=== PATIENT | male | born 1960 | race Caucasian/White ===

== ENCOUNTER → 2017-05-30 | Outpatient (CLI) | payer BC ==
[2017-05-30 10:22] LABS: ALT 57 U/L (21-72); AST 32 U/L (17-59); Cholesterol 157 mg/dL (<200); HDL Cholesterol 36 mg/dL (40-60); Triglycerides 101 mg/dL (<150)
== END ==
LOC: LABWHC1 09:35
PROVIDERS: ATTEND Internal Medicine Cardiovascular Disease
DX: E78.2 Mixed hyperlipidemia (principal)
CPT/HCPCS: 36415; 80061; 84450; 84460

== ENCOUNTER → 2018-01-09 | Outpatient (CLI) | payer BC ==
[2018-01-09 09:46] LABS: ALT 57 U/L (21-72); AST 28 U/L (17-59); Cholesterol 158 mg/dL (<200); HDL Cholesterol 35 mg/dL (40-60); LDL Cholesterol,Calculated 106 mg/dL (0-99); Triglycerides 87 mg/dL (<150)
== END | disposition home or self-care (01) ==
LOC: LABWHC1 08:49
PROVIDERS: ATTEND Internal Medicine Cardiovascular Disease
DX: E78.2 Mixed hyperlipidemia (principal)
CPT/HCPCS: 36415; 80061; 84450; 84460

== ENCOUNTER → 2019-07-16 | Outpatient (CLI) | payer BC ==
[2019-07-16 17:17] LABS: Chol/HDL Ratio 3.2; LDL Cholesterol,Calculated 71.8 mg/dL (0.0-131.0); VLDL Calculation 16.2 mg/dL (5.00-40.00)
== END | disposition home or self-care (01) ==
LOC: LABWHC1 07:14
PROVIDERS: ATTEND Internal Medicine Cardiovascular Disease
DX: E78.2 Mixed hyperlipidemia (principal)
CPT/HCPCS: 36415; 80061; 84450; 84460

== ENCOUNTER → 2022-12-13 | Outpatient (CLI) | payer BC ==
[2022-12-13 10:55] LABS: ALT 32 U/L (10-49); AST 29 U/L (14-35); Chol/HDL Ratio 4.92 Ratio; LDL Cholesterol,Calculated 120.8 mg/dL (0.0-131.0)
== END | disposition home or self-care (01) ==
LOC: LABWHC1 07:24
PROVIDERS: ATTEND Internal Medicine Cardiovascular Disease
DX: E78.2 Mixed hyperlipidemia (principal)
CPT/HCPCS: 36415; 80061; 84450; 84460

== ENCOUNTER → 2023-02-13 | Outpatient (CLI) | payer BC ==
--- NOTE | 2023-02-13 14:38 | US ---
EXAMINATION TYPE: US carotid duplex BILAT DATE OF EXAM: 02/13/2023 COMPARISON: NONE CLINICAL HISTORY: 62-year-old male H92.01 OTALGIA RT EAR. TECHNIQUE: Carotid duplex ultrasound examination. Indirect Doppler criteria was utilized. FINDINGS: EXAM MEASUREMENTS: RIGHT: Peak Systolic Velocity (PSV) cm/sec ----- Right CCA: 68.6 ----- Right ICA: 75.3 ----- Right ECA: 90.5 ICA/CCA ratio: 1.1 RIGHT: End Diastole cm/sec ----- Right CCA: 19.0 ----- Right ICA: 31.0 ----- Right ECA: 20.2 LEFT: Peak Systolic Velocity (PSV) cm/sec ----- Left CCA: 86.0 ----- Left ICA: 73.5 ----- Left ECA: 107.0 ICA/CCA ratio: 0.9 LEFT: End Diastole cm/sec ----- Left CCA: 23.2 ----- Left ICA: 27.7 ----- Left ECA: 23.1 VERTEBRALS (direction of flow): Right Vertebral: Antegrade Left Vertebral: Antegrade Rhythm: Normal Database Coordinator notes: No significant stenosis IMPRESSION: No hemodynamically significant internal carotid stenosis on the side. Criteria for Assigning % of Stenosis / Diameter reduction (Estimation based on the indirect measurements of the internal carotid artery velocities (ICA PSV). 1. Normal (no stenosis)=ICA PSV < 125 cm/s: ratio < 2.0: ICA EDV<40 cm/s. 2. Less than 50% stenosis=ICA PSV < 125 cm/s: ratio < 2.0: ICA EDV<40 cm/s. 3. 50 to 69% stenosis=ICA PSV of 125 to 230 cm/s: ration 2.0 ? 4.0: ICA EDV 40-100 cm/s. 4. Greater than 70% stenosis to near occlusion= ICA PSV > 230 cm/s: ratio > 4.0: ICA EDV > 100 cm/s. 5. Near occlusion= ICA PSV velocities may be low or undetectable: variable ratio and ICA EDV. 6. Total occlusion=unable to detect flow.
== END | disposition home or self-care (01) ==
LOC: RADUSWWP 10:50
PROVIDERS: ATTEND Otolaryngology
DX: H92.01 Otalgia, right ear (principal); H93.A3 Pulsatile tinnitus, bilateral
CPT/HCPCS: 93880

== ENCOUNTER → 2023-03-08 | Outpatient (CLI) | payer BC ==
--- NOTE | 2023-03-09 10:27 | MR ---
EXAMINATION TYPE: MR angio head wo/neck wo/w con DATE OF EXAM: 03/08/2023 3:09 PM CLINICAL INDICATION:Male, 62 years old with history of H93.A3,H93.01; Pulsatile tinnitus COMPARISON: CT 04/27/2014 Technical: MRA brain: 3-D [id number] Axial with MIP and 3-D reconstruction. Performed on a separate workstat ion. MRA neck: Multiplanar, multi-sequence imaging as well as [id number] and phase was performed extra cranial vasculature of the neck. 3-D reformatted images and maximum intensity projection reformatted images were submitted for evaluation, these are performed on a separate workstation. IV Contrast: 9.5 cc Gadavist Findings: Vertebral arteries: The vertebral arteries are patent. Vertebral arteries are codominant. Basilar artery: The basilar artery is intact. The basilar artery bifurcation is normal. Internal Carotid arteries: The cervical, petrous, cavernous and supraclinoid segments are normal. AMPARO: Patent with no evidence of aneurysm. ACOM: Present without evidence of aneurysm. MCA: Patent with no evidence of aneurysm. HIGH RISK CASE MANAGER: Patent with no evidence of aneurysm. PCOM: Hypoplastic bilaterally. Vascular loop type I on the left with a vessel coursing along the opening of the left internal audito ry canal. This is in close proximity to the left seventh and eighth cranial nerves. RIGHT CAROTID SYSTEM: The common carotid artery is patent. The carotid bifurcations demonstrates no e vidence for hemodynamically significant stenosis. The internal carotid artery is patent. LEFT CAROTID SYSTEM: The common carotid artery is patent. The carotid bifurcations demonstrates no e vidence for hemodynamically significant stenosis. The internal carotid artery is patent. The origins of the great vessels and vertebral arteries appear unremarkable. The codominant vertebra l arteries. IMPRESSION: 1. No evidence of intracranial aneurysm or significant stenosis. 2. Left internal auditory canal vascular loop correlate with left-sided pulsatile tinnitus. 3. No evidence of significant stenosis at the carotid bifurcations. The carotid and vertebral arteri es are patent. 4. No evidence aneurysm.
== END | disposition home or self-care (01) ==
LOC: RADMRIMAIN 14:15
PROVIDERS: ATTEND Otolaryngology
DX: H93.A3 Pulsatile tinnitus, bilateral (principal); H92.01 Otalgia, right ear
CPT/HCPCS: 70544; 70549; A9585

== ENCOUNTER → 2023-10-09 | Outpatient (CLI) | payer BC ==
--- NOTE | 2023-10-11 20:35 | MR ---
EXAMINATION TYPE: MR shoulder RT wo con DATE OF EXAM: 10/09/2023 COMPARISON: Right shoulder radiographs 09/30/2023 HISTORY: Right shoulder pain TECHNIQUE: Multiplanar, multisequence imaging of the right shoulder is performed without contrast. FINDINGS: SUPRASPINATUS: Intact. INFRASPINATUS: Intact. SUBSCAPULARIS: Intact. TERES MINOR: Intact. BICEPS: Intact. Increased signal within the intra-articular portion, relating to tendinosis. Normal a nchor in the supraglenoid tubercle. Extra-articular portion is appropriately positioned within the bi cipital groove. GLENOHUMERAL JOINT: Normal alignment and joint space. Normal cartilage. No effusion. ACROMIOCLAVICULAR JOINT: Capsular hypertrophy and large undersurface osteophytic spurring, this narro ws the subacromial space and indents upon the supraspinatus myotendinous junction. Trace joint effusi on. LABRUM: Normal, given the limitations of a non-arthrographic exam. SUBDELTOID BURSA: Normal. No increased fluid. MUSCLES: Normal. BONE MARROW: Degenerative bone marrow edema in the clavicle and acromion at the AC joint. OTHER: No additional significant abnormality is appreciated. IMPRESSION: 1. Intact rotator cuff tendons. 2. Long head biceps tendinosis. 3. Advanced AC joint osteoarthrosis narrowing the subacromial space and indenting the supraspinatus.
== END | disposition home or self-care (01) ==
LOC: RADMRIMAIN 11:02
PROVIDERS: ATTEND Orthopaedic Surgery
DX: M19.011 Primary osteoarthritis, right shoulder (principal); M67.813 Other specified disorders of tendon, right shoulder

== ENCOUNTER → 2023-11-03 | Outpatient (CLI) | payer BC ==
[2023-11-03 16:38] LABS: Anion Gap 9.9 mmol/L (4.00-12.00); Carbon Dioxide 24.1 mmol/L (21.6-31.8); Potassium 4.7 mmol/L (3.5-5.5)
== END | disposition home or self-care (01) ==
LOC: LABPAT 08:39
PROVIDERS: ATTEND Orthopaedic Surgery
DX: Z01.812 Encounter for preprocedural laboratory examination (principal); M75.41 Impingement syndrome of right shoulder
CPT/HCPCS: 80051

== ENCOUNTER 2023-11-13 09:11 | Day surgery (SDC) | payer BC ==
[2023-11-11 15:20] VITALS: BMI 33.4
--- NOTE | 2023-11-13 03:01 | HP ---
HISTORY AND PHYSICAL DATE OF SCHEDULED SURGERY: 11/13/2023. HISTORY OF PRESENT ILLNESS: Cristino Austin is a 63-year-old gentleman seen with progressive right shoulder pain. We discussed options for treatment, he elected to proceed with right shoulder arthroscopy. Consent regarding procedure was obtained. Preoperative clearance was provided. PAST MEDICAL HISTORY: Hypertension, hyperlipidemia, cardiovascular disease. PAST SURGICAL HISTORY: Noncontributory. DAILY MEDICATIONS: 1. Lisinopril. 2. Atorvastatin. 3. Omeprazole. ALLERGIES: None. SOCIAL HISTORY: Denies tobacco use. PHYSICAL EVALUATION OF THE RIGHT SHOULDER: Flexion is 140 degrees, abduction is 120 degrees. External rotation is 30 degrees with weakness. Tenderness along the anterolateral acromion and rotator cuff insertion site. Impingement is positive at 70 degrees. Drop-arm sign is positive. Cross-body adduction sign is positive. Distal neurovascular exam is intact. RADIOGRAPHS: Right shoulder type 2 acromion, cystic changes of the tuberosity. MRI right shoulder, impingement, acromioclavicular joint osteoarthritis, and biceps tendinitis. IMPRESSION: 1. Right shoulder impingement. 2. Right shoulder acromioclavicular joint osteoarthritis. 3. Right shoulder long head biceps tendinitis. 4. Hypertension. 5. Hyperlipidemia. PLAN: Right shoulder arthroscopy with subacromial decompression, Kim procedure, biceps tenodesis, and debridement. MMODL / IJN: [id number] /
[~2023-11-13 09:11] MED LIST: DEXAMETHASONE SOD PHOSPHATE 4 MG/ML 1 ML VIAL IV ONE; HYDROmorphone 0.5 MG/0.5 ML SYRINGE IVP PRN; LIDOCAINE 1% (10MG/ML) FOR IV START INTRADERMA PRN; ONDANSETRON 4 MG/2 ML VIAL IVP ONE; droPERidol 5 MG/2 ML VIAL IVP PRN
[2023-11-13 09:56] LABS: Basophils # (A) 0.1 k/uL (0-0.2); Basophils % (A) 1 %; Eosinophils # (A) 0.3 k/uL (0-0.7); Eosinophils % (A) 3 %; HCT 49.6 % (39.0-53.0); HGB 17.2 gm/dL (13.0-17.5); Lymphocytes # (A) 1.6 k/uL (1.0-4.8); Lymphocytes % (A) 14 %; MCH 32.1 pg (25.0-35.0); MCHC 34.7 g/dL (31.0-37.0); MCV 92.5 fL (80.0-100.0); Mean Platelet Volume 10.2; Monocytes # (A) 0.7 k/uL (0-1.0); Monocytes % (A) 6 %; Neutrophils # (A) 8.2 k/uL (1.3-7.7); Neutrophils % (A) 75 %; Platelet Count 174 k/uL (150-450); RBC 5.36 m/uL (4.30-5.90); RDW 12.5 % (11.5-15.5)
[2023-11-13] MEDS ORDERED: ONDANSETRON 4 MG/2 ML VIAL IVP ONE (10:03)
[2023-11-13] MEDS ORDERED: DEXAMETHASONE SOD PHOSPHATE 4 MG/ML 1 ML VIAL IVP ONE (10:03)
[2023-11-13] MEDS: LACTATED RINGERS 1,000 ML IV SCH ×2 (10:03→13:15)
[2023-11-13 10:04] VITALS: TEMP 98.2
[2023-11-13] MEDS ORDERED: MIDAZOLAM 2 MG/2 ML VIAL IVP ONE (10:12)
[2023-11-13] MEDS ORDERED: SUCCINYLCHOLINE CHLORIDE 200 MG/10 ML VIAL IV ONE (11:07)
[2023-11-13] MEDS ORDERED: PHENYLEPHRINE-0.9% NACL SYG 1,000 MCG/10 ML SYRINGE ONE (11:07)
[2023-11-13] MEDS ORDERED: ROPIVACAINE 5 MG/ML 30 ML VIAL ONE (11:07)
[2023-11-13] MEDS ORDERED: PROPOFOL 10 MG/ML 20 ML VIAL IV ONE (11:07)
[2023-11-13] MEDS ORDERED: DEXAMETHASONE SOD PHOSPHATE 4 MG/ML 1 ML VIAL ONE (11:07)
[2023-11-13] MEDS ORDERED: fentaNYL (PF) 50 MCG/ML 2 ML AMP ONE (11:07)
[2023-11-13] MEDS ORDERED: ePHEDrine 50 MG/ML 1 ML VIAL ONE (11:07)
[2023-11-13] MEDS ORDERED: ALBUTEROL HFA INHALER INHALATION ONE (11:07)
[2023-11-13] MEDS ORDERED: LIDOCAINE 1% INJ 10MG/ML (20 ML MDV) ONE (11:07)
--- NOTE | 2023-11-13 13:00 | P.OP ---
Date of Procedure: 11/13/23 Preoperative Diagnosis: Right shoulder impingement Postoperative Diagnosis: 1. Right shoulder rotator cuff tear 2. Right shoulder bicipital tendinitis 3. Right shoulder impingement 4. Right shoulder acromioclavicular joint osteoarthritis 5. Right shoulder superficial labral tear Procedure(s) Performed: 1. Right shoulder arthroscopic rotator cuff repair 2. Right shoulder arthroscopic biceps tenodesis 3. Right shoulder arthroscopic subacromial decompression 4. Right shoulder arthroscopic Kim procedure 5. Right shoulder arthroscopic debridement labral tear Implants: 2Arthrex 4.75 swivel lock anchors Anesthesia: GETA, regional (Interscalene block) Surgeon: Hussein Ge Faith Doctor #1: Ángel Garber Estimated Blood Loss (ml): 9 Pathology: none sent Condition: stable Disposition: PACU Indications for Procedure: 63-year-old patient who was seen with progressive right shoulder pain. After having treatment options discussed, he elected to proceed with arthroscopy. Operative Findings: See description of procedure Description of Procedure: Patient underwent an interscalene block by department of anesthesia. The patient was then taken to the operative suite. The patient underwent a general anesthetic by the department of anesthesia. The patient was placed into a lateral position and secured. There was appropriate padding of the bony promine nce. Right shoulder was then prepped and draped in normal sterile orthopedic fashion. We placed the extremity in 10 pounds of longitudinal traction. A posterior incision was now made for a posterior working portal site. The trocar and cannula were inserted into the glenohumeral joint. Arthroscopy was initiated. Spinal needle was now inserted anteriorly, to ascertain the anterior working portal site. An incision was now made in that area, a trocar was inserted followed by a probe. There was some superficial tearing of the anterior labrum. There was no specific chondromalacia present. There was some hyperemia of the long head biceps tendon consistent with bicipital tendinitis. I debrided out the superficial labral tear. The residual labrum was stable. I decided to proceed with arthroscopic biceps tenodesis. I introduced a cannula through anterior portal site. I put a loop and tact type stitch through the tendon and then released from the superior labrum. With the assistance of Galo CLEMENTE I punched the hole at the interval area for insertion of an anchor. The suture limb was passed through the eyelet of an Arthrex 4.75 swivel lock anchor. I placed the eyelet into our pre-punch hole. I held in position while Galo CLEMENTE tensioned the suture and deployed the anchor was good fixation noted. The residual suture limb was clipped. Utilizing the posterior working portal site, the trocar and cannula were inserted into the subacromial space. Arthroscopy initiated. I made an incision 2 fingerbreadths lateral to the acromion. I introduced my trocar followed by my A rthroCare ablator. I now began ablating thick subacromial bursal tissue, which exposed the undersurface of the anterior acromion. There was diminished subacromial space. There was a very prominent anterior acromion. A motorized bur was introduced and a subacromial decompression was performed. I also excised some osteophytes off the inferior aspect of the distal clavicle. The AC joint was visualized and noted to be fairly arthritic. The motorized bur was introduced in the anterior portal site and a Kim procedure was performed without difficulty, decompressing the AC joint nicely. I turned my attention to the rotator cuff. There was significant partial tearing along the distal supraspinatus tendon. Upon probing the area noted a full-thickness perforation. I debrided the margins getting down to stable tendon tissue. The tear/defect measured about 1.5 cm and was freely mobile over the footprint. I abraded the footprint with a motorized bur. With the assistance of Galo CLEMENTE I passed 3 everted mattress sutures through good bites of rotator cuff tendon. I now punched a hole in the footprint area for insertion of an anchor. All 6 limbs of suture were passed through the eyelet of an Arthrex 4.75 swivel lock anchor. I placed the eyelet into our pre-punch hole. I held the eyelet/anchor in position while Galo CLEMENTE tensioned all 6 limbs of suture and deployed the anchor was good fixation noted. All residual suture limbs were now clipped. We had good compression of the tendon along the entire footprint. Instruments now removed from the portal sites. All portal sites were approximated with nylon suture. Sterile dressings were applied followed by a shoulder sling. Ángel CLEMENTE assisted in this complex case. The patient was awakened, transferred to a bed, and taken to recovery in stable condition.
[2023-11-13 14:18] VITALS: RESP 18
[2023-11-13 15:08] VITALS: BP 109/70; PULSE 62
--- NOTE | 2023-11-14 10:44 | P.ANPRN ---
Procedure Note - Anesthesia - Nerve Block Performed Right Interscalene Single Time Out Performed: Yes Date of Procedure: 11/13/23 Procedure Start Time: 10:11 Procedure Stop Time: 10:16 Location of Patient: PreOp Indication: Acute Post-Operative Pain, Requested by Surgeon Sedation Type: Sedate with meaningful contact maintained Preparation: Sterile Prep Position: Supine Needle Types: Pajunk Needle Gauge: 21 Ultrasound used to visualize needle placement: Yes Ultrasound used to observe medication spread: Yes Resistance on Injection: Normal Image Stored and Saved: Yes Events: Uneventful and Well Tolerated (Ropivacaine 0.5% 20 mL plus dexamethasone 4 mg)
== END 2023-11-13 15:16 | disposition home or self-care (01) ==
LOC: OR 09:11
PROVIDERS: ATTEND Orthopaedic Surgery
DX: M75.101 Unspecified rotator cuff tear or rupture of right shoulder, not specified as traumatic (principal); M25.811 Other specified joint disorders, right shoulder; M75.21 Bicipital tendinitis, right shoulder; M75.41 Impingement syndrome of right shoulder; M19.011 Primary osteoarthritis, right shoulder; I25.10 Atherosclerotic heart disease of native coronary artery without angina pectoris; I10 Essential (primary) hypertension; E78.5 Hyperlipidemia, unspecified; Z79.899 Other long term (current) drug therapy
CPT/HCPCS: 64415; 85025; 29824; 29826; 29827; 29828; C1713 ×2; J2250; J0330; J1100; J0690; J2405; J2001; J3010; J2795; J2704; J2371

== ENCOUNTER → 2024-02-12 | Outpatient (CLI) | payer BC ==
[2024-02-12 11:38] LABS: ALT 29 U/L (10-49); AST 21 U/L (14-35); Chol/HDL Ratio 4.18 Ratio; LDL Cholesterol,Calculated 106.6 mg/dL (0.0-131.0); VLDL Calculation 11.32 mg/dL (5.00-40.00)
== END | disposition home or self-care (01) ==
LOC: LABWHC1 07:40
PROVIDERS: ATTEND Internal Medicine Cardiovascular Disease
DX: E78.2 Mixed hyperlipidemia (principal)
CPT/HCPCS: 36415; 80061; 84450; 84460

== ENCOUNTER → 2025-01-25 | Outpatient (CLI) | payer BC ==
[2025-01-25 13:53] VITALS: BP 152/63; PULSE 66; RESP 16; TEMP 98
--- NOTE | 2025-01-25 20:36 | P.SLEEP ---
History of Present Illness H&P Date: 01/25/25 Chief Complaint: MICHELE This is a 64-year-old male patient referred to me for sleep apnea evaluation. The patient has history of loud snoring and he stops breathing at night and this has been noted by family members and the patient is having excessive daytime fatigue and sleepiness. His sleep is fragmented and the patient has nocturia and at times he feels restless in his lower extremities. No grinding of the teeth. No sleepwalking or sleep talking. Denies waking up anxious or panicky. No nocturnal heartburn. He goes to bed between 8 and 9 PM and wakes up 4:45 AM in the morning and he has been maintaining the same schedule on weekdays and weekends. His current [place] score is 17. He is a side sleeper and he wakes up with a dry mouth. 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 He is able to maintain functionality at work and he does not fall asleep while completing his task. He drinks 3 cups of coffee in the morning. He also drinks around 3-4 beers on a daily basis. No substance abuse. His current body mass index is 35.7 and the patient has managed to maintain his weight over the past 5 years. Mostly paralysis. No hallucinations. No cataplexy. He is known to have coronary artery disease and he has an ID at the young age and he has several coronary stents. He has also history of hypertension hyperlipidemia. Review of Systems Constitutional: Reports daytime sleepiness, Reports fatigue Eyes: denies as per HPI, denies blurred vision, denies bulging eye, denies decreased vision, denies diplopia, denies discharge, denies dry eye, denies irritation, denies itching, denies pain, denies photophobia, denies loss of peripheral vision, denies loss of vision, denies tunnel vision/blind spots Ears: deny: decreased hearing, ear discharge, earache, tinnitus Ears, nose, mouth and throat: Reports as per HPI Breasts: absent: as per HPI, gynecomastia Cardiovascular: Reports as per HPI Respiratory: Reports as per HPI, Reports sleep apnea, Reports snoring Gastrointestinal: Reports as per HPI Genitourinary: Reports as per HPI Musculoskeletal: Reports as per HPI Musculoskeletal: absent: ankle pain, ankle stiffness, ankle swelling, as per HPI, elbow pain, elbow stiffness, elbow swelling, foot pain, foot stiffness, foot swelling, hand pain, hand stiffness, hand swelling, hip pain, hip stiffness, hip swelling, knee pain, knee stiffness, knee swelling, shoulder pain, shoulder stiffness, shoulder swelling, wrist pain, wrist stiffness, wrist swelling Integumentary: Reports as per HPI Psychiatric: Reports as per HPI Endocrine: Reports as per HPI, Reports fatigue Hematologic/Lymphatic: Reports as per HPI Allergic/Immunologic: Reports as per HPI Past Medical History Past Medical History: Coronary Artery Disease (CAD), GERD/Reflux, Hypertension Additional Past Medical History / Comment(s): heart attack 2006 History of Any Multi-Drug Resistant Organisms: None Reported Past Surgical History: Orthopedic Surgery Additional Past Surgical History / Comment(s): rt shoulder, colonoscopy Past Anesthesia/Blood Transfusion Reactions: No Reported Reaction Past Psychological History: No Psychological Hx Reported Smoking Status: Current every day smoker Past Alcohol Use History: Daily Past Drug Use History: None Reported Medications and Allergies Home Medications Medication Instructions Recorded Confirmed Type Aspirin [Adult Low Dose Aspirin EC] 81 mg PO QAM 11/11/23 01/25/25 History Atorvastatin [Lipitor] 80 mg PO QAM 11/11/23 01/25/25 History Ezetimibe [Zetia] 10 mg PO QAM 11/11/23 01/25/25 History Omeprazole 20 mg PO QAM 11/11/23 01/25/25 History lisinopriL [Zestril] 5 mg PO QAM 11/11/23 01/25/25 History nadoloL 80 mg PO QAM 11/11/23 01/25/25 History HYDROcodone/APAP 10-325MG [[place] 1 tab PO Q6HR PRN 7 Days #21 tab 11/13/23 Rx 10-325] Allergies Allergy/AdvReac Type Severity Reaction Status Date / Time No Known Allergies Allergy Verified 11/13/23 09:35 Physical Exam Vitals: Vital Signs Temp Pulse Resp BP Pulse Ox 01/25/25 13:51 98 F 66 16 152/63 95 Intake and Output 01/25/25 01/25/25 01/25/25 06:59 14:59 22:59 Other: Weight 103.419 kg The patient appeared well nourished and normally developed. Vital signs as documented. Patient has a body mass index of 35.7. Current weight is 228 pounds Head exam is unremarkable. No scleral icterus or corneal arcus noted. Neck is without jugular venous distension, thyromegaly, or carotid bruits. Carotid upstrokes are brisk bilaterally. The patient is a Mallampati class IV. Lungs are clear to auscultation and percussion. Cardiac exam reveals the PMI to be normally sized and situated. Rhythm is regular. First and second heart sounds normal. No murmurs, rubs or gallops. Abdominal exam reveals normal bowel sounds, no masses, no organomegaly and no aortic enlargement. Extremities are nonedematous and both femoral and pedal pulses are normal. Examination of the skin revealed no evidence of significant rashes, suspicious appearing nevi or other concerning lesions. Neurologically, the patient is awake and alert and the patient does not have any focal neurological deficit. Cranial nerves are essentially intact. Assessment and Plan Plan: Chronic hypersomnia, [place] score of 17. Rule out obstructive sleep apnea specially with his history of snoring and sleep fragmentation. Obesity with a BMI of 35.7 Mallampati class IV Hypertension Hyperlipidemia Coronary artery disease with remote history of ID Plan Increase suspicion for sleep apnea. This is to be further investigated. The patient is going to undergo a screening polysomnography and based on the results we will come up with treatment options. Encourage weight loss Avoid driving especially when feeling drowsy or sleepy Increase the number of hours of sleep to an average of 7 to 8 hours per night Maintain good sleep hygiene measures Will follow Sleep Note - Sleep Data ESS Total: 17 - Sleep Note Sleep Note: Temperature: 98 F Pulse Rate: 66 Respiratory Rate: 16 Blood Pressure: 152/63 SpO2: 95 Height: 5 ft 7 in Weight: 103.419 kg BMI: Neck Circumference: 17.5
== END ==
LOC: 3 N SLEEP 13:27
PROVIDERS: ATTEND Internal Medicine Critical Care Medicine
DX: G47.10 Hypersomnia, unspecified (principal); E66.9 Obesity, unspecified; Z68.35 Body mass index [BMI] 35.0-35.9, adult; I10 Essential (primary) hypertension; E78.5 Hyperlipidemia, unspecified; I25.10 Atherosclerotic heart disease of native coronary artery without angina pectoris
CPT/HCPCS: 99211

== ENCOUNTER → 2025-02-05 | Outpatient (CLI) | payer BC ==
[2025-02-05 12:48] LABS: ALT 32 U/L (10-49); AST 23 U/L (14-35); Chol/HDL Ratio 3.33 Ratio; LDL Cholesterol,Calculated 86.8 mg/dL (0.0-131.0); VLDL Calculation 17.54 mg/dL (5.00-40.00)
== END | disposition home or self-care (01) ==
LOC: LABWHC1 08:06
PROVIDERS: ATTEND Internal Medicine Cardiovascular Disease
DX: E78.2 Mixed hyperlipidemia (principal)
CPT/HCPCS: 36415; 80061; 84450; 84460

== ENCOUNTER 2025-02-23 19:36 | Outpatient (CLI) | payer BC ==
--- NOTE | 2025-03-09 22:32 | P.PCN ---
Date of Procedure: 02/23/25 Operative Findings: Polysomnography report Date of service is 02/23/2025 History This is a 64-year-old male patient referred to me for sleep apnea evaluation. The patient has history of loud snoring and he stops breathing at night and this has been noted by family members and the patient is having excessive daytime fatigue and sleepiness. His sleep is fragmented and the patient has nocturia and at times he feels restless in his lower extremities. No grinding of the teeth. No sleepwalking or sleep talking. Denies waking up anxious or panicky. No nocturnal heartburn. He goes to bed between 8 and 9 PM and wakes up 4:45 AM in the morning and he has been maintaining the same schedule on weekdays and weekends. His current [place] score is 17. He is a side sleeper and he wakes up with a dry mouth. 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 He is able to maintain functionality at work and he does not fall asleep while completing his task. He drinks 3 cups of coffee in the morning. He also drinks around 3-4 beers on a daily basis. No substance abuse. His current body mass index is 35.7 and the patient has managed to maintain his weight over the past 5 years. Mostly paralysis. No hallucinations. No cataplexy. He is known to have coronary artery disease and he has an DC at the young age and he has several coronary stents. He has also history of hypertension hyperlipidemia. Physical findings Weight is 228 pounds and a body mass index of 35.7 Technical description The patient was studied using a standard complex polysomnography protocol that included recording of the Lead II EKG, Central, occipital and frontal EEG, right and left outer canthus EOG, submental EMG, right and left anterior tibialis EMG, respiratory airflow by thermocouple and or pressure/flow transducer, respiratory efforts by abdominal and thoracic PVDF belts, oxygen saturation by cable oximetry. Position by observation synchronized the PSG. Equipment used: [employer]. Sleep architecture The total recording duration was 432.5 minutes. The total sleep time was 350.5 minutes. The overall sleep efficiency was 81%. The latency to sleep onset is 32.5 minutes. Related to REM sleep is 82.5 minutes. The sleep architecture was characterized by 6.6% stage I, 66.2% stage II, 0% stage III and a total of 27.2% REM sleep. The total arousal index was 29.6. The wake after sleep onset time was 49 minutes. Results The sleep study showed a total of 189 obstructive events of which 72 obstructive apneas, 0 mixed apneas and 171 obstructive hypopneas. The resulting AHI was 32 consistent with severe obstructive sleep apnea. No central apneas were noted. The patient had worsening in disease severity during REM sleep. AHI during REM was 52.1. Oxygenation analysis The baseline pulse ox while awake was 93%. Lowest oxygen saturation was 60% and the patient spent approximately 71 minutes of the sleep time below pulse ox of 89% accounted for 16.5% of the overall recording time. Arousal events The patient had total of 173 arousals with an index of 29.6. The respiratory arousal index was 21.7 Periodic movement events The patient had a total of 19 periodic limb movement activity with an index of 3.3. In addition, there was a total of 8 periodic limb movement activity with arousals with an index of 1.4 Cardiac summary Average heart rate is 55 with a minimum heart rate of 53 and a maximum heart rate of 58 and the rhythm was sinus Assessment Severe symptomatic obstructive sleep apnea with an AHI of 32, worse during REM sleep. Nocturnal oxygen desaturation, severe with a minimum pulse ox of 60% during sleep Chronic hypersomnia, [place] score of 17. Sleep fragmentation with a high respiratory arousal index Obesity with a BMI of 35.7 Mallampati class IV Hypertension Hyperlipidemia Coronary artery disease with remote history of DC Plan Proceed with CPAP therapy for treatment of severe symptomatic obstructive sleep apnea. Encourage weight loss Avoid driving especially when feeling drowsy or sleepy Increase the number of hours of sleep to an average of 7 to 8 hours per night Maintain good sleep hygiene measures The patient will be asked to come into the sleep center to undergo a CPAP titration.
== END 2025-02-24 05:30 | disposition home or self-care (01) ==
LOC: 3 N SLEEP 19:36
PROVIDERS: ATTEND Internal Medicine Critical Care Medicine
DX: G47.33 Obstructive sleep apnea (adult) (pediatric) (principal); I10 Essential (primary) hypertension; I25.10 Atherosclerotic heart disease of native coronary artery without angina pectoris; E78.5 Hyperlipidemia, unspecified; E66.9 Obesity, unspecified; Z68.35 Body mass index [BMI] 35.0-35.9, adult; Z99.89 Dependence on other enabling machines and devices; Z86.79 Personal history of other diseases of the circulatory system
CPT/HCPCS: 95810